=== PATIENT | male | born 2000 | race Caucasian/White ===

== ENCOUNTER 2023-11-10 06:30 | Emergency (ER) | payer BC ==
[~2023-11-10] VITALS: Ht 182.9 cm; Wt 99.8 kg
[2023-11-10 06:39] VITALS: PULSE 74; RESP 18; TEMP 98.3; O2SAT 100
[2023-11-10] MEDS ORDERED: METHOCARBAMOL750 MG PO (09:19)
== END 2023-11-10 09:35 | disposition home or self-care (01) ==
LOC: ER 06:35
DX: S40.211A Abrasion of right shoulder, initial encounter (principal); S50.312A Abrasion of left elbow, initial encounter; S50.812A Abrasion of left forearm, initial encounter; S30.810A Abrasion of lower back and pelvis, initial encounter; S80.812A Abrasion, left lower leg, initial encounter; V28.49XA Other motorcycle driver injured in noncollision transport accident in traffic accident, initial encounter; Y92.488 Other paved roadways as the place of occurrence of the external cause
CPT/HCPCS: 70450; 71250; 72125; 72170; 99283